=== PATIENT | male | born 1955 | race Caucasian/White ===

== ENCOUNTER 2016-09-17 10:24 | Observation (INO) | payer OTHER ==
[~2016-09-17] VITALS: Ht 175.3 cm; Wt 101.5 kg
[~2016-09-17 10:24] MED LIST: ASPIR-LOW81 MG PO; COUMADIN,JANTOVE1 MG PO; ENDOCET 5-3251 EACH PO; Feosol PO; NAPROXEN250 MG PO
[2016-09-17] MEDS ORDERED: ATORVASTATIN CA10 MG PO (10:35)
[2016-09-17 11:05] LABS: HEMATOCRIT 47.4 % (38.0-50.0); MCH 29.7 PG (29.0-34.0); MCHC 34.6 G/DL (30.0-36.0); MCV 85.7 FL (86-99); MEAN PLAT.VOLUME 9.8 uM^3 (9.0-12.4); PLATELET COUNT 272 K/uL (156-360); RBC DIS.WIDTH-CV 13.1 % (11.8-14.6); RBC DIS.WIDTH-SD 40.1 % (39-53); RED BLOOD COUNT 5.53 M/uL (4.00-5.50); WHITE BLOOD COUNT 11.1 K/uL (4.1-10.2)
[2016-09-17 11:15] LABS: CHLORIDE 110 mEq/L (99-109); POTASSIUM 4.2 mEq/L (3.7-5.4); SODIUM 145 mEq/L (136-147)
[2016-09-17 11:17] LABS: GLUCOSE 111 mg/dL (70-99)
[2016-09-17 11:18] LABS: ANION GAP 8 MEQ/L (2-14)
[2016-09-17 11:21] LABS: GFR ESTIMATE (CALCULATED) 51 mL/min/
[2016-09-17 11:22] LABS: UREA NITROGEN (BUN) 14 mg/dL (9-23)
[2016-09-17 11:25] LABS: TROP-I INTERPRETATION NEGATIVE; TROPONIN-I < 0.01 ng/mL (0.0-0.30)
[2016-09-17 12:27] LABS: ADD MIUA? YES; BILIRUBIN NEGATIVE; BLOOD NEGATIVE; COLOR YELLOW ((YELLOW)); GLUCOSE (STRIP) NEGATIVE; KETONES NEGATIVE; LEUKOCYTES NEGATIVE; NITRITE NEGATIVE; PROTEIN (STRIP) 30; SPECIFIC GRAVITY 1.023 (1.000-1.030); UROBILINOGEN 0.2 MG/DL (0.2-1.0)
[2016-09-17 12:51] LABS: BACTERIA RARE /HPF; EPITHELIAL CELLS RARE /HPF; HYALINE CASTS 20-30 /LPF; MUCUS 4+ /LPF; RED BLOOD CELLS 0-5 /HPF (0-5); UCUL ADDED? NO; WHITE BLOOD CELLS 0-5 /HPF (0-5)
[2016-09-17] MEDS ORDERED: TYLENOL EXTRA500 MG PO (14:40)
[2016-09-17] MEDS ORDERED: VENTOLIN HFA18 GM IH (14:40)
[2016-09-17] MEDS ORDERED: OMEGA Q PLUS PO (14:45)
[2016-09-17 16:07] VITALS: BP 131/80
[2016-09-17 19:09] VITALS: BP 126/69
[2016-09-17 19:24] LABS: TROP-I INTERPRETATION NEGATIVE; TROPONIN-I 0.02 ng/mL (0.0-0.30)
[2016-09-17 22:56] VITALS: BP 152/76
[2016-09-18 02:50] VITALS: BP 130/70
[2016-09-18 05:11] LABS: HEMATOCRIT 40.7 % (38.0-50.0); MCH 30.6 PG (29.0-34.0); MCHC 35.4 G/DL (30.0-36.0); MCV 86.4 FL (86-99); MEAN PLAT.VOLUME 10.1 uM^3 (9.0-12.4); PLATELET COUNT 218 K/uL (156-360); RBC DIS.WIDTH-CV 13.1 % (11.8-14.6); RBC DIS.WIDTH-SD 40.7 % (39-53); RED BLOOD COUNT 4.71 M/uL (4.00-5.50); WHITE BLOOD COUNT 9.3 K/uL (4.1-10.2)
[2016-09-18 05:15] LABS: CHLORIDE 108 mEq/L (99-109); POTASSIUM 4.4 mEq/L (3.7-5.4); SODIUM 143 mEq/L (136-147)
[2016-09-18 05:17] LABS: GLUCOSE 113 mg/dL (70-99)
[2016-09-18 05:18] LABS: ANION GAP 8 MEQ/L (2-14)
[2016-09-18 05:20] LABS: GFR ESTIMATE (CALCULATED) > 59 mL/min/
[2016-09-18 05:21] LABS: UREA NITROGEN (BUN) 15 mg/dL (9-23)
[2016-09-18] MEDS ORDERED: PRAVASTATIN SOD40 MG PO (07:47)
[2016-09-18] MEDS ORDERED: ELIQUIS5 MG PO (07:47)
[2016-09-18 09:00] VITALS: BP 138/89
[2016-09-18 12:00] VITALS: BP 131/88
== END 2016-09-18 12:22 | disposition home or self-care (01) ==
LOC: EME 10:24 → 4EAST 14:04 → EDOF 14:04 → 4EAST 14:04 → ENRESERV 14:10 → 4EAST 15:15
PROVIDERS: Emergency Medicine; Physician Assistant
DX: I48.1 Persistent atrial fibrillation (principal); E78.5 Hyperlipidemia, unspecified; R94.31 Abnormal electrocardiogram [ECG] [EKG]; Z87.11 Personal history of peptic ulcer disease; Z96.643 Presence of artificial hip joint, bilateral
CPT/HCPCS: 71010; 80048; 80069; 81003; 84443; 84484; 85027; 93005; 93306; 99281; 99285; G0378; J7030

== ENCOUNTER 2017-05-09 12:25 | Emergency (ER) | payer OTHER ==
[~2017-05-09] VITALS: Ht 175.3 cm; Wt 99.7 kg
[~2017-05-09 12:25] MED LIST changes: +ATORVASTATIN CA10 MG PO; +ELIQUIS5 MG PO; +OMEGA Q PLUS PO; +PRAVASTATIN SOD40 MG PO; +TYLENOL EXTRA500 MG PO; +VENTOLIN HFA18 GM IH
[2017-05-09 13:05] LABS: APPEARANCE CLOUDY ((CLEAR)); BILIRUBIN NEGATIVE; BLOOD LARGE; COLOR AMBER ((YELLOW)); GLUCOSE (STRIP) NEGATIVE; KETONES NEGATIVE; LEUKOCYTES NEGATIVE; NITRITE NEGATIVE; PROTEIN (STRIP) 100; SPECIFIC GRAVITY 1.023 (1.000-1.030); UROBILINOGEN 0.2 MG/DL (0.2-1.0)
[2017-05-09 13:09] LABS: HEMATOCRIT 40.7 % (38.0-50.0); HEMOGLOBIN 14.3 G/DL (12.5-16.6); MCH 30.8 PG (29.0-34.0); MCHC 35.1 G/DL (30.0-36.0); MCV 87.5 FL (86-99); PLATELET COUNT 243 K/uL (156-360); RBC DIS.WIDTH-CV 12.6 % (11.8-14.6); RBC DIS.WIDTH-SD 40.1 % (39-53); RED BLOOD COUNT 4.65 M/uL (4.00-5.50); WHITE BLOOD COUNT 6.8 K/uL (4.1-10.2)
[2017-05-09 13:17] LABS: ALBUMIN 4.2 g/dL (3.2-4.8)
[2017-05-09 13:17] LABS: BACTERIA RARE /HPF; EPITHELIAL CELLS RARE /HPF; MUCUS NONE SEEN /LPF; RED BLOOD CELLS TNTC /HPF (0-5); UCUL ADDED? YES; WHITE BLOOD CELLS NONE SEEN /HPF (0-5)
[2017-05-09 13:18] LABS: CHLORIDE 109 mEq/L (99-109); POTASSIUM 4.1 mEq/L (3.7-5.4); SODIUM 144 mEq/L (136-147)
[2017-05-09 13:20] LABS: GLUCOSE 93 mg/dL (70-99); TOTAL PROTEIN 6.8 g/dL (6.4-8.3)
[2017-05-09 13:22] LABS: TOTAL BILIRUBIN 0.5 mg/dL (0.0-1.0)
[2017-05-09 13:23] LABS: ALKALINE PHOSPHATASE 89 IU/L (3-129)
[2017-05-09 13:24] LABS: CREATININE 1.3 mg/dL (0.6-1.3); GFR ESTIMATE (CALCULATED) > 59 mL/min/ (58.99-99999)
[2017-05-09 13:25] LABS: AST (GOT) 24 IU/L (2-34); UREA NITROGEN (BUN) 13 mg/dL (9-23)
[2017-05-09 13:27] LABS: ALT (GPT) 27 IU/L (3-49)
[2017-05-09 14:18] VITALS: BP 148/86
== END 2017-05-09 15:01 | disposition home or self-care (01) ==
LOC: EME 12:25
DX: R31.9 Hematuria, unspecified (principal); T45.515A Adverse effect of anticoagulants, initial encounter; I10 Essential (primary) hypertension; E78.5 Hyperlipidemia, unspecified; J45.909 Unspecified asthma, uncomplicated; Z96.641 Presence of right artificial hip joint
CPT/HCPCS: 80053; 81003; 85027; 87086; 99281; 99284